=== PATIENT | female | born 1970 | race Two or more races ===

== ENCOUNTER 2022-07-27 11:45 | Inpatient (IN) | payer OTHER ==
[~2022-07-27] VITALS: Ht 157.5 cm; Wt 71.2 kg
[2022-07-27] MEDS ORDERED: COZAAR25 MG PO (12:23)
== END 2022-07-30 12:29 | disposition home or self-care (01) | DRG 741 ==
LOC: O/R 07-29 06:45 → OB/GYN 07-29 11:45
PROVIDERS: ADMIT Obstetrics & Gynecology Gynecologic Oncology; ATTEND Obstetrics & Gynecology Gynecologic Oncology
PROC: 0UT74ZZ Resection of Bilateral Fallopian Tubes, Percutaneous Endoscopic Approach (ICD-10-PCS; 2022-07-29)
PROC: 0UT24ZZ Resection of Bilateral Ovaries, Percutaneous Endoscopic Approach (ICD-10-PCS; 2022-07-29)
PROC: 07BC4ZZ Excision of Pelvis Lymphatic, Percutaneous Endoscopic Approach (ICD-10-PCS; 2022-07-29)
PROC: 0UT94ZZ Resection of Uterus, Percutaneous Endoscopic Approach (ICD-10-PCS; principal; 2022-07-29 15:00)
DX: C54.1 Malignant neoplasm of endometrium (principal); Z20.822 Contact with and (suspected) exposure to COVID-19